=== PATIENT | male | born 1950 | race Caucasian/White ===

== ENCOUNTER 2022-05-01 13:19 | Inpatient (IN) ==
[2022-05-01] MEDS ORDERED: Vancomycin (wt based) 1,000 MG VIAL IV STA (20:29)
[2022-05-01] MEDS ORDERED: Iopamidol - 370 500 ML MLS IVP ONE (20:30)
[2022-05-01] MEDS ORDERED: Cefepime HCl 2,000 MG in 0.9 % Sodium Chloride Mini Bag 100 ML IVPB STA (20:34)
[2022-05-01] MEDS ORDERED: Vancomycin 1,750 MG/517.5 ML IV.SOLN IVPB ONE (20:35)
[2022-05-01] MEDS ORDERED: Ketorolac 30 MG/ML VIAL IVP ONE (20:40)
[2022-05-01] MEDS ORDERED: 0.9 % Sodium Chloride 1,000 ML IV ONE (20:40)
[2022-05-01] MEDS ORDERED: Morphine Sulfate 2 MG/ML SYRINGE IVP ONE (20:40)
[2022-05-01 21:45] LABS: Basophils # 0.1 K/mcL (0.0-0.2); Basophils % 0.5 %; Eosinophils # 0.3 K/mcL (0.0-0.6); Eosinophils % 3.3 %; Hematocrit 38.7 % (37.5-50.1); Hemoglobin 12.7 g/dL (12.9-16.9); Immature Granulocytes % 1.2 % (0-4); Lymphocytes # 1.4 K/mcL (0.6-4.6); Lymphocytes % 14.4 %; Mean Corpuscular HGB Conc 32.8 g/dL (31.6-35.5); Mean Corpuscular Hemoglobin 31.5 pg (28.0-33.3); Mean Platelet Volume 11.1 fL (9.4-12.4); Monocytes # 0.8 K/mcL (0.0-1.3); Monocytes % 7.8 %; Neutrophils # 7.3 K/mcL (1.6-8.9); Platelet Count 220 K/mcL (140-400); Red Blood Count 4.03 M/mcL (4.19-5.50); Segmented Neutrophils % 72.8 %
[2022-05-01 22:04] LABS: Albumin 3.3 g/dL (3.5-5.7); Albumin/Globulin Ratio 1.1 (1.1-2.2); Bilirubin,Direct 0.1 mg/dL (0.0-0.2); Bilirubin,Indirect 0.3 mg/dL (0.0-1.0); Bilirubin,Total 0.4 mg/dL (0.3-1.0); Calcium 9.2 mg/dL (8.6-10.3); Globulin 3.1 g/dL (2.4-3.5); Potassium 4.4 mEq/L (3.5-5.1); Total Protein 6.4 g/dL (6.4-8.9)
[2022-05-02] MEDS ORDERED: Naloxone 0.4 MG/ML INJ IVP PRN ×2 (02:19→16:45)
[2022-05-02] MEDS ORDERED: Ondansetron ODT 4 MG TAB.RAPDIS SL PRN ×2 (02:19→16:45)
[2022-05-02] MEDS ORDERED: Td (TENIVAC) Vaccine 0.5 ML VIAL IM ONE (05:48)
[2022-05-02] MEDS ORDERED: *HR* OxyCODONE/APAP 5/325 TABLET PO PRN ×2 (06:15→16:45)
[2022-05-02] MEDS ORDERED: *HR* OxyCODONE/APAP 10/325 TABLET PO PRN ×2 (06:15→16:45)
[2022-05-02] MEDS: Clindamycin 600 MG/50 ML 600 MG/50 ML IV.SOLN IVPB SCH ×3 (06:33→18:26)
[2022-05-02] MEDS: Cefepime HCl 2,000 MG in 0.9 % Sodium Chloride 10 ML IVP SCH ×3 (08:58→18:25)
[2022-05-02] MEDS ORDERED: Vancomycin 1,250 MG/262.5 ML IV.SOLN IVPB SCH (10:00)
[2022-05-02] MEDS ORDERED: carvediloL 6.25 MG TABLET PO SCH ×2 (12:45→17:00)
[2022-05-02] MEDS ORDERED: *HR* Propofol 200 MG/20 ML VIAL IVP ONE (13:20)
[2022-05-02] MEDS ORDERED: *HR* FentaNYL (PF) 100 MCG/2 ML VIAL ONE ×2 (13:20→14:35)
[2022-05-02] MEDS ORDERED: Lidocaine -MPF 2% 2 ML VIAL ONE (13:23)
[2022-05-02] MEDS ORDERED: Ondansetron 4 MG/2 ML VIAL IVP PRN (13:29)
[2022-05-02] MEDS ORDERED: Ipratropium Neb 0.5 MG NEBULIZER IH PRN (13:29)
[2022-05-02] MEDS ORDERED: Acetaminophen IV 1,000 MG/100 ML BAG IVPB PRN (13:29)
[2022-05-02] MEDS ORDERED: *HR* FentaNYL (PF) 100 MCG/2 ML VIAL IVP PRN (13:29)
[2022-05-02] MEDS ORDERED: *HR* Labetalol 20 MG/4 ML SYRINGE IVP PRN (13:29)
[2022-05-02] MEDS ORDERED: Albuterol 2.5 MG/3 ML NEBULIZER IH PRN (13:29)
[2022-05-02] MEDS ORDERED: *HR* HYDROmorphone PF 0.5 MG/0.5 ML SYRINGE IVP PRN (13:29)
[2022-05-02] MEDS ORDERED: *HR* HYDROcodone/Acet 10/325 mg TABLET PO PRN ×2 (13:32→16:45)
[2022-05-02] MEDS ORDERED: Lidocaine/EPI 1:100k 1% 50 ML VIAL ONE (13:43)
[2022-05-02] MEDS ORDERED: *HR* Metoprolol 5 MG/5 ML VIAL IVP ONE (13:50)
[2022-05-02] MEDS ORDERED: *HR* Magnesium Sulfate 1 GM/2 ML VIAL ONE (13:58)
[2022-05-02] MEDS ORDERED: Vancomycin (wt based) 1,000 MG VIAL IV STA (16:45)
[2022-05-02] MEDS: carvediloL 6.25 MG TABLET PO SCH (18:24)
[2022-05-02] MEDS: Vancomycin 1,250 MG/262.5 ML IV.SOLN IVPB SCH (22:14)
[2022-05-03] MEDS: Cefepime HCl 2,000 MG in 0.9 % Sodium Chloride 10 ML IVP SCH ×3 (00:37→18:57)
[2022-05-03] MEDS: Clindamycin 600 MG/50 ML 600 MG/50 ML IV.SOLN IVPB SCH ×3 (02:25→18:57)
[2022-05-03 02:47] LABS: Basophils % 0.4 %; Eosinophils % 0.4 %; Hematocrit 37.4 % (37.5-50.1); Hemoglobin 12.4 g/dL (12.9-16.9); Immature Granulocytes % 1.2 % (0-4); Lymphocytes # 0.7 K/mcL (0.6-4.6); Lymphocytes % 6.6 %; Mean Corpuscular HGB Conc 33.2 g/dL (31.6-35.5); Mean Corpuscular Hemoglobin 31.1 pg (28.0-33.3); Mean Corpuscular Volume 93.7 fL (83.0-100.0); Mean Platelet Volume 11.1 fL (9.4-12.4); Monocytes # 0.7 K/mcL (0.0-1.3); Monocytes % 6.4 %; Neutrophils # 9.5 K/mcL (1.6-8.9); Platelet Count 235 K/mcL (140-400); Red Blood Count 3.99 M/mcL (4.19-5.50); Red Cell Distribution Width 13.9 % (11.5-14.5); White Blood Count 11.2 K/mcL (4.3-11.1)
[2022-05-03 03:13] LABS: Calcium 8.9 mg/dL (8.6-10.3); Magnesium 2.1 mg/dL (1.6-2.6); Potassium 4.4 mEq/L (3.5-5.1)
[2022-05-03] MEDS ORDERED: Nitroglycerin 0.4 MG TAB.SUBL SL PRN (07:49)
[2022-05-03] MEDS ORDERED: Aspirin Enteric Coated 81 MG Tablet PO SCH ×2 (09:00)
[2022-05-03] MEDS ORDERED: *HR* Amiodarone 200 MG TABLET PO SCH (09:00)
[2022-05-03] MEDS ORDERED: Ascorbic Acid 500 MG TABLET PO SCH (09:00)
[2022-05-03] MEDS: Cholecalciferol (D-3) 1,000 UNIT (25MCG) TABLET PO SCH (10:33)
[2022-05-03] MEDS: Multivit/Ca/Min/Fe/FA 1 TAB TABLET PO SCH (10:33)
[2022-05-03] MEDS: Ascorbic Acid 500 MG TABLET PO SCH (10:34)
[2022-05-03] MEDS: Aspirin Enteric Coated 81 MG Tablet PO SCH (10:34)
[2022-05-03] MEDS: Spironolactone 25 MG TABLET PO SCH (10:34)
[2022-05-03] MEDS: Vancomycin 1,250 MG/262.5 ML IV.SOLN IVPB SCH (10:39)
[2022-05-03] MEDS: carvediloL 6.25 MG TABLET PO SCH ×2 (10:44→18:58)
[2022-05-03] MEDS: Vancomycin 1,500 MG/265 ML IV.SOLN IVPB SCH (14:56)
[2022-05-03] MEDS ORDERED: Cefepime HCl 2,000 MG in 0.9 % Sodium Chloride 10 ML IVP SCH (17:00)
[2022-05-04] MEDS: Cefepime HCl 2,000 MG in 0.9 % Sodium Chloride 10 ML IVP SCH ×3 (00:36→17:45)
[2022-05-04] MEDS: Clindamycin 600 MG/50 ML 600 MG/50 ML IV.SOLN IVPB SCH ×3 (02:10→17:46)
[2022-05-04] MEDS: Vancomycin 1,500 MG/265 ML IV.SOLN IVPB SCH ×2 (02:10→14:27)
[2022-05-04] MEDS: Multivit/Ca/Min/Fe/FA 1 TAB TABLET PO SCH (07:53)
[2022-05-04] MEDS: carvediloL 6.25 MG TABLET PO SCH ×2 (07:53→17:44)
[2022-05-04] MEDS: Ascorbic Acid 500 MG TABLET PO SCH (07:53)
[2022-05-04] MEDS: Aspirin Enteric Coated 81 MG Tablet PO SCH (07:53)
[2022-05-04] MEDS: Cholecalciferol (D-3) 1,000 UNIT (25MCG) TABLET PO SCH (07:53)
[2022-05-04] MEDS: Spironolactone 25 MG TABLET PO SCH (07:54)
[2022-05-04] MEDS: Lactobacillus 1 EACH CAP.SPRINK PO SCH (20:39)
[2022-05-05] MEDS: Vancomycin 1,500 MG/265 ML IV.SOLN IVPB SCH (01:08)
[2022-05-05] MEDS: Cefepime HCl 2,000 MG in 0.9 % Sodium Chloride 10 ML IVP SCH ×2 (01:08→08:58)
[2022-05-05] MEDS: Clindamycin 600 MG/50 ML 600 MG/50 ML IV.SOLN IVPB SCH ×2 (01:09→08:58)
[2022-05-05] MEDS: Ascorbic Acid 500 MG TABLET PO SCH (08:57)
[2022-05-05] MEDS: carvediloL 6.25 MG TABLET PO SCH (08:57)
[2022-05-05] MEDS: Aspirin Enteric Coated 81 MG Tablet PO SCH (08:57)
[2022-05-05] MEDS: Lactobacillus 1 EACH CAP.SPRINK PO SCH (08:57)
[2022-05-05] MEDS: Spironolactone 25 MG TABLET PO SCH (08:57)
[2022-05-05] MEDS: Cholecalciferol (D-3) 1,000 UNIT (25MCG) TABLET PO SCH (08:57)
[2022-05-05] MEDS: Multivit/Ca/Min/Fe/FA 1 TAB TABLET PO SCH (08:57)
[2022-05-05 10:35] VITALS: BP 126/72; PULSE 84; TEMP 97.8; O2SAT 96
== END 2022-05-05 15:00 | disposition home or self-care (01) | DRG 501 ==
LOC: EMEROOARM 13:19 → SUATTDRO 05-02 02:29 → 4WAOSI 05-02 02:29
PROVIDERS: ADMIT Internal Medicine; ATTEND Family Medicine